=== PATIENT | male | born 1990 | race Caucasian/White ===

== ENCOUNTER 2021-05-03 10:20 | Emergency (ER) | payer BC, SELFPAY ==
--- NOTE | ~2021-05-03 | CT_ITS ---
EXAMINATION: CT abdomen pelvis w con EXAM DATE: 05/03/2021 14:00 INDICATION: Left sided abdominal pain, vomiting . TECHNIQUE: Spiral CT of the abdomen and pelvis was performed following intravenous injection of 100 m L Omnipaque 350. Axial, coronal and sagittal images of the abdomen and pelvis were reviewed. The do se-length product (DLP) for this examination was 663.36 mGy-cm. The exposure was tailored according to patient size (auto mA exposure control), and iterative reconstruction (ASIR) was used as additiona l dose reduction technique. There is no prior study for comparison. FINDINGS: There is hepatic steatosis without suspicious focal lesion identified. Spleen, adrenal glan ds, pancreas are unremarkable. Gallbladder is unremarkable. No biliary obstruction. Portal and spl enic veins are patent. Kidneys enhance symmetrically. There is no hydronephrosis. The prostate is unremarkable. The bladder is unremarkable. There is no retroperitoneal or pelvic lymphadenopathy. The appendix is normal. There is mild scattered colonic diverticulosis. There is no adjacent inflamm atory change to suggest diverticulitis. The stomach and small bowel are unremarkable. There is expec bry amount of colonic stool. No free intraperitoneal gas. The heart is normal in size. There are no pericardial or pleural effusions. The lung bases are unremarkable. There are no osteoblastic or osteolytic lesions identified. IMPRESSION: 1. No acute intra-abdominal findings. 2. Mild colonic diverticulosis. 3. Hepatic steatosis. Reviewed, dictated and finalized at location B.
[2021-05-03 11:06] VITALS: BP 127/93; PULSE 84; RESP 18; TEMP 36.8; O2SAT 98
[2021-05-03 11:22] LABS: Basophils Absolute Auto 0.1 K/mm3 (0.0-0.1); Basophils Percent Auto 1.9 % (0.2-1.2); Eosinophils Absolute Auto 0.2 K/mm3 (0-0.3); Eosinophils Percent Auto 3.4 % (0-4.4); Hematocrit 44.5 % (42.0-52.0); Hemoglobin 15.6 g/dL (14.0-18.0); Immature Granulocyte Absolute 0.01 K/mm3 (0.00-0.031); Immature Granulocyte Percent A 0.2 % (0-0.5); Lymphocytes Absolute Auto 2.14 K/mm3 (0.9-3.2); Lymphocytes Percent Auto 45.3 % (18.3-44.2); Mean Corpuscular HGB Conc 35.1 g/dl (32-36); Mean Corpuscular Hemoglobin 33.1 pg (26-34); Mean Corpuscular Volume 94.3 fl (80-100); Mean Platelet Volume 9.4 fl (7.4-10.4); Monocytes Absolute Auto 0.6 K/mm3 (0.1-0.6); Monocytes Percent Auto 11.9 % (2.6-8.5); Neutrophils Absolute Auto 1.8 K/mm3 (1.3-6.7); Neutrophils Percent Auto 37.3 % (45.5-73.1); Platelet Count Result 201 k/mm3 (150-375); Red Blood Count 4.72 M/mm3 (4.6-6.20); Red Cell Distribution Width 12.8 % (11.5-14.5); White Blood Count 4.7 K/mm3 (4.5-10.0)
[2021-05-03 11:26] LABS: Add Urine Microscopic? NO; Appearance Urine Clear (Clear); Bilirubin Urine Negative (Negative); Blood Urine Negative (Negative); Color Urine Yellow (Yellow); Glucose Urine UA Negative (Negative); Ketones Urine Negative (Negative); Leukocyte Esterase Ur Negative LEU/UL (Negative); Nitrate Urine Negative (Negative); Protein Urine Negative (Negative); Specific Grav Ur 1.012 (1.001-1.035); Urobilinogen Urine Negative mg/dL (<2.0)
--- NOTE | 2021-05-03 12:29 | ED.ABDPAIN ---
HPI - Abdominal Pain General Chief Complaint: Abdominal Pain <SETH Collins Last Filed: 05/03/21 15:40> Stated Complaint: abd pain, N/V <SETH Collins Last Filed: 05/03/21 15:40> Time Seen by Provider: 05/03/21 11:44 <SETH Collins Last Filed: 05/03/21 15:40> Source: patient <SETH Collins Last Filed: 05/03/21 15:40> Mode of arrival: ambulatory <SETH Collins Last Filed: 05/03/21 15:40> Limitations: no limitations <SETH Collins Last Filed: 05/03/21 15:40> History of Present Illness HPI narrative: This is a 30-year-old male that presents to the emergency department for intermittent abdominal pain over the last month. Associated with nausea and vomiting. Also reports he has had intermittent diarrhea. Reports the pain is on the left side of his abdomen. Sometimes it is sharp and sometimes it is dull in nature. He has been following with his primary for this and has referral to gastroenterology, but his appointment is not till the middle of May. His pain worsened yesterday which prompted him to be seen today. Denies fever, dysuria, hematuria. <SETH Collins Last Filed: 05/03/21 15:40> Related Data Allergies/Adverse Reactions: Allergies Allergy/AdvReac Type Severity Reaction Status Date / Time No Known Allergies Allergy Verified 05/03/21 11:40 <SETH Collins Last Filed: 05/03/21 15:40> Review of Systems Review of Systems: Narrative: CONSTITUTIONAL: Denies fever GASTROINTESTINAL: Reports abdominal pain, nausea, vomiting, and diarrhea. GENITOURINARY: Denies dysuria or hematuria. <SETH Collins Last Filed: 05/03/21 15:40> All systems reviewed & are unremarkable except as noted in HPI and below <SETH Collins Last Filed: 05/03/21 15:40> [facility], [facility] Past Medical History Medical History: Medical History (Updated 05/03/21 @ 15:40 by Jo Ann Castillo PA-C) History of gastroesophageal reflux (GERD) History of hypertension <Jo Ann Castillo PA-C - Last Filed: 05/03/21 15:40> Exam Narrative: Exam Narrative: GENERAL: Well-appearing, well-nourished, and in no acute distress. HEAD: Normocephalic, atraumatic. EYES: EOMI. CHEST: Clear to auscultation. No respiratory distress. No wheezes rales or rhonchi HEART: Regular rate and rhythm. No murmur heard. Normal peripheral pulses. ABDOMEN: Soft, nondistended, normal active bowel sounds. Tender to palpation of the left side of the abdomen, without guarding EXTREMITIES: Normal range of motion. No edema. SKIN: Warm, dry, no rash. NEURO: No focal deficits. Alert and oriented x3. PSYCH: Normal mood and affect <Jo Ann Castillo PA-C - Last Filed: 05/03/21 15:40> Course Vital Signs Vital signs: Vital Signs Temperature 98.3 F 05/03/21 11:06 Pulse Rate 84 05/03/21 11:06 Respiratory Rate 18 05/03/21 11:06 Blood Pressure 127/93 H 05/03/21 11:06 Pulse Oximetry 98 05/03/21 11:06 Temperature 98.3 F 05/03/21 11:06 Pulse Rate 78 05/03/21 15:59 Respiratory Rate 20 05/03/21 15:59 Blood Pressure 149/93 H 05/03/21 15:59 Pulse Oximetry 99 05/03/21 15:59 <Jo Ann Castillo PA-C - Last Filed: 05/03/21 15:40> Vital Signs Temperature 98.3 F 05/03/21 11:06 Pulse Rate 84 05/03/21 11:06 Respiratory Rate 18 05/03/21 11:06 Blood Pressure 127/93 H 05/03/21 11:06 Pulse Oximetry 98 05/03/21 11:06 Temperature 98.3 F 05/03/21 11:06 Pulse Rate 78 05/03/21 15:59 Respiratory Rate 20 05/03/21 15:59 Blood Pressure 149/93 H 05/03/21 15:59 Pulse Oximetry 99 07/28/21 15:59 <Khalida Benavidez MD - Last Filed: 05/03/21 18:50> MDM - Abdominal Pain MDM Narrative Medical decision making narrative: Patient presents emergency department for intermittent episodes of abdominal pain, nausea and vomiting. Ongoing over the last couple of weeks. He is afebrile and nontoxic-
[2021-05-03] MEDS: MORPHINE SULFATE (*CRX) 4 MG/ML INJ IV PUSH (12:49)
[2021-05-03] MEDS: SODIUM CHLORIDE 0.9% IV 1,000 ML 999 ML IV CONT (12:50)
[2021-05-03] MEDS: ONDANSETRON INJ 4 MG/2 ML VIAL IV PUSH (12:50)
[2021-05-03 13:24] LABS: Alanine Aminotransferase 117 U/L (4-50); Albumin Level 3.5 g/dL (3.5-5.1); Alkaline Phosphatase 92 U/L (38-126); Anion Gap 13 mmol/L (8-16); Aspartate Amino Transferase 122 U/L (17-59); Bilirubin,Total 1.1 mg/dL (0.2-1.3); Blood Urea Nitrogen 12 mg/dL (9-20); Calcium 8.9 mg/dL (8.4-10.2); Carbon Dioxide 20 mmol/L (22-30); Chloride 98 mmol/L (98-107); Estimated CRCL calculation 89 ml/min; Estimated Glomerular Filt Rate > 60; Glucose 101 mg/dL (65-110); Lipase 211 U/L (23-300); Potassium 4.4 mmol/L (3.4-5.0); Sodium 131 mmol/L (137-145)
[2021-05-03 13:46] LABS: Estimated CRCL calculation 143 ml/min; Estimated Glomerular Filt Rate > 60
[2021-05-03 15:06] VITALS: BP 143/90; PULSE 87; RESP 18; O2SAT 99
[2021-05-03 15:59] VITALS: BP 149/93; PULSE 78; RESP 20; O2SAT 99
== END 2021-05-03 16:00 | disposition home or self-care (01) ==
PROVIDERS: Emergency Provider General Practice; PCP Family Medicine
DX: R10.9 Unspecified abdominal pain (principal); K76.0 Fatty (change of) liver, not elsewhere classified; K21.9 Gastro-esophageal reflux disease without esophagitis; I10 Essential (primary) hypertension
CPT/HCPCS: 36415; 74177; 80053; 81003; 83690; 85025; 96361; 96374; 96375; 99284; J0131; J2270; J2405; J7030; Q9967